=== PATIENT | female | born 2000 | race Caucasian/White ===

== ENCOUNTER → 2022-02-26 | Outpatient (CLI) | payer OTHER, SELFPAY ==
[2022-02-28 21:07] LABS: Chlamydia By Nucleic Acid AMP Negative (Negative)
[2022-03-01 15:10] LABS: Gonococcus By Nucleic Acid AMP Negative (Negative)
[2022-03-05 15:08] LABS: HPV Reflexed? NOT INDICATED
== END | disposition home or self-care (01) ==
PROVIDERS: Visit Provider Student in an Organized Health Care Education/Training Program
DX: Z12.4 Encounter for screening for malignant neoplasm of cervix (principal); Z11.3 Encounter for screening for infections with a predominantly sexual mode of transmission
CPT/HCPCS: 87491; 87591; 88175; G0145

== ENCOUNTER → 2022-05-03 | Outpatient (CLI) | payer OTHER, SELFPAY ==
[2022-05-03 16:04] LABS: Absolute Lymphocyte Count 2.21 X10^3/uL (0.83-4.51); Absolute Neutrophil Count 7.6 X10^3/uL (2.0-7.7); Basophil# 0.04 X10^3/uL; Basophil% 0.4 % (0-1); Eosinophil# 0.15 X10^3/uL; Eosinophils% 1.4 % (0-5); Hematocrit 36.7 % (37-47); Lymphocyte # 2.21 X10^3/ul (0.83-4.51); Lymphocyte % 20.9 % (19-41); Mean Corp Hgb Conc 32.7 g/dL (32-36); Mean Corpuscular Volume 82.7 fL (81-99); Monocyte# 0.47 X10^3/uL; Monocyte% 4.5 % (0-10); NRBC Flagged by Analyzer 0 % (0-5); Neutrophil # 7.64 X10^3/uL (2.7-7.7); Neutrophil % 72.4 % (47-70); Platelet Count 314 K/mm3 (150-450); RBC Distribution Width CV 14.3 % (11.6-14.6); RBC Distribution Width SD 42.8 fl (35.1-43.9); Red Blood Count 4.44 M/mm3 (4.2-5.4); White Blood Count 10.6 K/mm3 (4.4-11.0)
[2022-05-03 17:15] LABS: HIV - WCH Non-Reactive (Nonreactive); Hepatitis B Surface Antigen Non-Reactive (Nonreactive); Hepatitis C Antibody Non-Reactive (Nonreactive); Rubella IgG Reactive (Nonreactive); Syphilis Antibodies Non-reactive
[2022-05-05 14:54] LABS: V-Zoster IgG (Immunity) 948 index (Immune >165)
== END | disposition home or self-care (01) ==
LOC: WOBLAB 15:19
PROVIDERS: Visit Provider Obstetrics & Gynecology
DX: N91.2 Amenorrhea, unspecified (principal)
CPT/HCPCS: 36415; 85025; 86703; 86762; 86780; 86787; 86803; 87086; 87088; 87340

== ENCOUNTER → 2022-08-13 | Outpatient (CLI) | payer MEDICAID, SELFPAY ==
[2022-08-13 15:39] LABS: Absolute Lymphocyte Count 1.84 X10^3/uL (0.83-4.51); Absolute Neutrophil Count 8.3 X10^3/uL (2.0-7.7); Basophil# 0.02 X10^3/uL; Basophil% 0.2 % (0-1); Eosinophil# 0.07 X10^3/uL; Eosinophils% 0.7 % (0-5); Hematocrit 35.4 % (37-47); Hemoglobin 11.4 g/dL (12.0-15.0); Lymphocyte # 1.84 X10^3/ul (0.83-4.51); Lymphocyte % 17.1 % (19-41); Mean Corp Hgb Conc 32.2 g/dL (32-36); Mean Corpuscular Hgb 27.6 pg (27.0-32.0); Mean Corpuscular Volume 85.7 fL (81-99); Mean Platelet Vol. 9.5 fl (6.2-12.0); Monocyte# 0.48 X10^3/uL; Monocyte% 4.5 % (0-10); NRBC Flagged by Analyzer 0 % (0-5); Neutrophil # 8.31 X10^3/uL (2.7-7.7); Neutrophil % 77.2 % (47-70); Platelet Count 282 K/mm3 (150-450); RBC Distribution Width CV 13.5 % (11.6-14.6); RBC Distribution Width SD 42.5 fl (35.1-43.9); Red Blood Count 4.13 M/mm3 (4.2-5.4); White Blood Count 10.8 K/mm3 (4.4-11.0)
[2022-08-13 16:20] LABS: Glucose Challenge Gest 1H 50g 105 mg/dL (70-140)
[2022-08-13 16:49] LABS: Syphilis Antibodies Non-reactive
== END | disposition home or self-care (01) ==
LOC: WOBLAB 15:21
PROVIDERS: PCP Pediatrics; Visit Provider Obstetrics & Gynecology
DX: Z34.82 Encounter for supervision of other normal pregnancy, second trimester (principal); Z11.3 Encounter for screening for infections with a predominantly sexual mode of transmission
CPT/HCPCS: 36415; 82950; 85025; 86780

== ENCOUNTER 2023-07-12 13:45 | Emergency (ER) | payer MEDICAID, SELFPAY ==
[2023-07-12 13:45] VITALS: BP 124/50; PULSE 82; RESP 16; TEMP 35.7; O2SAT 95; BMI 41.6
--- NOTE | 2023-07-12 14:19 | RAD_ITS ---
INDICATION: FALL EXAMINATION/TECHNIQUE: X-RAY - RIGHT XR Wrist Min 3 Views 3 VIEWS COMPARISON: No relevant prior comparison study available FINDINGS: SOFT TISSUES: No soft tissue swelling or gas. No radiopaque foreign body. BONES/JOINTS: No acute fracture or subluxation.. Normal alignment. Preservation of the joint space.. No sclerotic or destructive changes observed. RAD/Wrist min 3 Views IMPRESSION: No evidence of acute fracture or dislocation. Electronically Signed: Scott Abrams MD at 14:51 EDT ,
--- NOTE | 2023-07-12 14:32 | RAD_ITS ---
INDICATION: FALL EXAMINATION/TECHNIQUE: X-RAY - RIGHT XR Hand Min 3 Views 3 VIEWS COMPARISON: No relevant prior comparison study available FINDINGS: SOFT TISSUES: No soft tissue swelling or gas. No radiopaque foreign body. BONES/JOINTS: No acute fracture or subluxation.. Normal alignment. Preservation of the joint space.. No sclerotic or destructive changes observed. RAD/Hand Min 3 Views IMPRESSION: No evidence of acute fracture or dislocation. Electronically Signed: Scott Abrams MD at 14:49 EDT ,
[2023-07-12 17:45] VITALS: PULSE 84; RESP 14; O2SAT 100
--- NOTE | 2023-07-12 18:31 | ED.RN ---
Patient LWBS at 1831.
== END 2023-07-12 18:31 | disposition left against medical advice (07) ==
LOC: ED 18:44
PROVIDERS: PCP Pediatrics
DX: Z04.3 Encounter for examination and observation following other accident (principal); Z53.21 Procedure and treatment not carried out due to patient leaving prior to being seen by health care provider
CPT/HCPCS: 73110; 73130

== ENCOUNTER 2024-06-13 18:45 | Emergency (ER) | payer MEDICAID, SELFPAY ==
[2024-06-13 18:46] VITALS: BP 116/61; PULSE 71; RESP 18; TEMP 36.1; O2SAT 100; BMI 41.8
--- NOTE | 2024-06-13 19:08 | EX.ED.UPPERE ---
HPI <BRAULIO [place] - Last Filed: 06/13/24 19:48> History of Present Illness Chief Complaint: Upper Extremity Injury Narrative Narrative: 23-year-old female injured her right shoulder last night. She was lifting the car seat with her [id number] infant when she felt a sudden pain in the right shoulder. There was no direct trauma. She was seen at a [facility] orthopedic urgent care and had negative shoulder x-rays. She was given an IM Toradol shot, prescribed ibuprofen, and given a sling. She states ibuprofen did not help the pain. She took a Valium she had on hand to be able to get some sleep. She states the pain is now shooting to her right elbow. She has no weakness or numbness or tingling. [facility] <BRAULIO [place] - Last Filed: 06/13/24 19:48> [facility] Medical History (Updated 06/13/24 @ 19:34 by BRAULIO [place]) Acute otitis media, right Medical History no medical history Home Medications ?Medication ?Instructions ?Recorded ?Last Taken ?Type NK 05/28/22 Unknown History Allergy/AdvReac Type Severity Reaction Status Date / Time No Known Allergies Allergy Verified 06/13/24 18:46 Social History (System 08/21/22 @ 09:44 by Anabel Perera) Smoking Status: Never smoker ROS <BRAULIO [place] - Last Filed: 06/13/24 19:48> ROS ED ROS Narrative Neuro: Negative for motor/sensory dysfunction. Musc: Positive for right shoulder pain. No swelling. EXAM <BRAULIO [place] - Last Filed: 06/13/24 19:48> Physical Exam Narrative Exam Narrative: CONST: Patient sitting in no acute distress. EYES: Normal inspection. NECK: Normal inspection. No midline tenderness or step-offs. RESP: No respiratory distress, CTAB. CVS: Regular rate and rhythm, no murmur, no gallop. SKIN: Color normal, no rash, warm, dry, intact. EXTREMITIES: Right upper extremity: Normal appearance. Tender over right trapezius and right subclavicular area. There is no bony tenderness of the clavicle, shoulder humerus elbow forearm wrist or hand. Shoulder range of motion is limited due to pain but she has full passive range of motion. 5/5 strength, normal sensation, normal function in median radial and ulnar distributions. 2+ radial pulse. Soft compartments. NEURO: Alert and answering questions appropriately. PSYCH: Normal affect. Const Vital Signs: 06/13/24 18:46 Temperature 97 F L Temperature Source Temporal Pulse Rate 71 Respiratory Rate 18 Blood Pressure 116/61 Blood Pressure Mean 79 Pulse Ox 100 Oxygen Delivery Method Room Air [facility] <BRAULIO [place] - Last Filed: 06/13/24 19:48> [facility] Narrative Medical decision making narrative: 23-year-old female developed right shoulder pain with lifting a car seat with her infant. There was no direct trauma. She was seen at another orthopedic emergency room and had negative shoulder x-rays. She is taking ibuprofen without pain relief. She also tried a Valium she had on hand. She has no external signs of trauma. She is tender over the anterior and posterior shoulder muscles but really does not have any bony tenderness of the chest back or right upper extremity. She is neurovascularly intact. Her history and exam are consistent with a muscle strain. She states Toradol at the previous facility last night did not help so she does not want it again. I ordered Tylenol, Lidoderm patch, and Norflex and recommended she alternate Tylenol and ibuprofen every 3 hours and use [id number] lidocaine patches. This will take time to improve. She was discharged in stable condition. <Dr. Vinnie Hong DO - Last Filed: 06/13/24 23:17> [facility] Narrative Medical decision making narrative: 23-year-old female developed right shoulder pain with lifting a car seat with her . There was no direct trauma. She was seen at another orthopedic emergency room and had negative shoulder x-rays. She is taking ibuprofen without pain relief. She also tried a Valium she had on hand. She has no external signs of trauma. She is tender over the anterior and posterior shoulder muscles but really does not have any bony tenderness of the chest back or right upper extremity. She is neurovascularly intact. Her history and exam are consistent with a muscle strain. She states Toradol at the previous facility last night did not help so she does not want it again. I ordered Tylenol, Lidoderm patch, and Norflex and recommended she alternate Tylenol and ibuprofen every 3 hours and use [id number] lidocaine patches. This will take time to improve. She was discharged in stable condition. ED attending note: I evaluated the patient in conjunction with the [facility]. I agree with his/her statements and above findings. I have personally performed a face to face assessment of the patient and have reviewed the [facility] Note. I performed a substantive portion of the visit including all aspects of the following. I personally saw the patient performed chart review, physical exam, reviewed labs, imaging (if obtained), and formulated a treatment and management plan. History as above. Exam: No step-offs deformities noted to right shoulder. No clavicular tenderness. Compartments are soft. Right upper extremity neurovascular intact. Intact 5/5 strength with ok sign (median), intact finger abduction (ulnar) intact wrist extension (radial n). Intact sensation in the radial, ulnar, and median nerve distributions. MDM/plan: Likely rotator cuff injury. Patient self-reported negative x-ray. Medication for additional images. Patient's point for discharge home with a sling and symptomatic therapy. This note was generated with [employer] dictation software. It may contain incorrect words, spelling, and punctuation that were not noted in review of the chart prior to signing. Discharge Plan Triage Chief Complaint: Upper Extremity Injury ED Midlevel Provider: Sammie Galeano ED Provider: Vinnie Hong Dx/Rx/DC Orders Clinical Impression: Right shoulder strain Instructions: ED Muscle Strain, Extremity Prescriptions: No Action NK Primary Care Provider: Care Physician,No Primary Referrals: Kevin Coleman MD [Non-Staff] - Activity Restrictions/Additional Instructions: You can take ibuprofen 600 mg and Tylenol 1000 mg every 6 hours together. Use ice. You can use [id number] Salonpas (these are lidocaine patches). This is a muscle strain and will take time to improve. Print Language: Filipino Disposition Disposition: Home, Self Care Discharge Date/Time: 06/13/24 20:08
[2024-06-13] MEDS: Orphenadrine 100 MG Tablet PO (19:17)
[2024-06-13] MEDS: Lidocaine 5% Patch 1 PATCH TOPICAL (19:17)
[2024-06-13] MEDS: Acetaminophen 500 MG Tablet 1000 MG PO (19:17)
[2024-06-13 20:07] VITALS: BP 124/62; PULSE 77; RESP 18; TEMP 36.9; O2SAT 100
== END 2024-06-13 20:08 | disposition home or self-care (01) ==
PROVIDERS: Emergency Provider Emergency Medicine; Visit Provider Emergency Medicine
DX: S46.911A Strain of unspecified muscle, fascia and tendon at shoulder and upper arm level, right arm, initial encounter (principal); X50.0XXA Overexertion from strenuous movement or load, initial encounter
CPT/HCPCS: 99283

== ENCOUNTER 2024-09-08 23:42 | Emergency (ER) | payer MEDICAID, SELFPAY ==
[2024-09-08 23:43] VITALS: BP 128/65; PULSE 89; RESP 18; TEMP 36.2; O2SAT 98; BMI 42.0
--- NOTE | 2024-09-08 23:51 | EDS_ITS ---
HPI HPI - Female History of Present Illness Chief Complaint: Female C/O Pain Pain: Positive for Pelvic Pain Onset: Today Context: Sudden Onset Timing: Intermittent Quality: Positive for Sharp and Stabbing Location: RLQ (Right inguinal area) Worsened by: - (Nothing) Relieved by: - (Nothing) Bleeding Issue: Positive for Vaginal bleeding and Passing clots Onset: Weeks (3) Timing: Continuous Associated Symptoms Associated Symptoms: Negative for Dysuria or Frequency Narrative Narrative: Patient presents with right inguinal pain that began today. Patient states it began rather suddenly. Patient states it has been intermittent. Patient describes it as sharp and stabbing. Patient states nothing makes it better nothing makes it worse. Patient denies any fevers or chills. Patient denies any radiation of her pain. Patient admits to some nausea but denies any vomiting. Patient does admit to some persistent vaginal bleeding over the past 3 weeks. Patient also admits to some blood in her stools that has been intermittent. [facility] Medical History (Updated 09/09/24 @ 02:[address] Ivan Bright DO) Depression Anxiety Vaginal delivery Acute otitis media, right Home Medications ?Medication ?Instructions ?Recorded ?Last Taken ?Type citalopram 10 mg tablet 10 mg PO DAILY 09/08/24 Unkn own History hydroxyzine HCl 10 mg tablet 10 mg PO TID PRN PRN anxi ety 09/08/24 Unknown History sulfamethoxazole 800 1 tab PO BID #6 TABLETS 08/20 06/15 Unknown Rx mg-trimethoprim 160 mg tablet tramadol 50 mg tablet 50 mg PO Q6H PRN PRN Pain 3 days 09/09/24 Unknown Rx #12 tabs Allergy/AdvReac Type Severity Reaction Status Date / Time shrimp Allergy Mild Rash Verified 09/08/24 23:43 Surgical History no surgical history no surgical history Social History Smoking Status: Never smoker ROS ROS ED Constitutional Constitutional ED: Denies chills or fever(s) Eyes Eyes: Reports blurry vision; Denies change in vision ENT ENT ED: Denies rhinorrhea or sore throat Cardiovascular Cardiovascular: Denies chest pain or palpitations Respiratory/Chest Respiratory/Chest: Denies cough or dyspnea Gastrointestinal Gastrointestinal: Reports abdominal pain and nausea; Denies vomiting Genitourinary Genitourinary ED: Denies dysuria or urinary frequency Musculoskeletal Musculoskeletal: Denies back pain or neck pain Integumentary Denies abscess or rash Neurologic Neurologic: Reports headache(s); Denies weakness Allergic/Immunologic Allergic/Immunologic ED: Denies mouth swelling or urticaria EXAM Physical Exam Const Vital Signs: 09/08/24 23:43 09/09/24 01:42 Temperature 97.2 F L Temperature Source Temporal Pulse Rate 89 69 Respiratory Rate 18 15 Blood Pressure 128/65 H 129/89 H Blood Pressure Mean 86 102 Pulse Ox 98 98 Oxygen Delivery Method Room Air Room Air Positive well nourished and well developed Constitutional Narrative: BMI is 42.1 General Appearance ED: well developed and NAD HEENT Reports moist mucous membranes Neck supple and no JVD Resp normal respiratory effort and clear to auscultation bilaterally Cardio regular rate and regular rhythm GI soft to palpation and non-distended Palpation: tender RLQ (And right inguinal area); Negative for guarding Extremity normal to inspection and full ROM General Extremety ED: Negative for edema or tenderness General Extremity: Negative for edema Neuro oriented x3, CN's II-XII intact bilaterally and no sensory deficits noted Sensorium / Orientation: alert Motor Exam: strength 5/5 throughout Psych mental status grossly normal MDM MDM MDM Narrative Medical decision making narrative: Differential diagnosis includes ovarian cyst, ectopic , urinary tract infection, hemorrhagic cystitis, lower gastrointestinal bleeding, hemorrhoid, pancreatitis, and colitis. CBC will be obtained to assess for leukocytosis and anemia. Comprehensive metabolic profile will be obtained to assess for hepatic function, renal function, and electrolyte abnormality. Lipase will be obtained to assess for pancreatitis. Serum hCG will be obtained to assess for . Urinalysis will be obtained to assess for urinary tract infection and hematuria. Stool for occult blood will be obtained to assess for lower gastrointestinal bleeding. History & Record Review Additional record(s) reviewed:: Prior outpatient record and Prior labs Lab Data Attestation: I reviewed the patient's lab results. Lab results narrative: CBC was reviewed and was within normal limits. Comprehensive metabolic profile was reviewed and was within normal limits. Lipase was reviewed and was normal. Serum hCG was reviewed and was negative. Urinalysis was reviewed. Leukocyte Estrace was 100. There are 50-100 white blood cells. There is 3+ bacteria. There are 10-25 epithelial cells. Occult blood was 250. There are greater than 100 red blood cells noted. Stool was positive for occult blood. Labs: Laboratory Results - last 24 hr 09/08/24 09/08/24 00:18 23:57 WBC 10.2 RBC 4.72 Hgb 12.7 Hct 39.0 MCV 82.6 MCH 26.9 L MCHC 32.6 RDW Std Deviation 40.8 RDW Coeff of Queta 13.4 Plt Count 307 MPV 10.0 Immature Gran % (Auto) 0.300 Neut % (Auto) 52.3 Lymph % (Auto) 36.1 [place] % (Auto) 5.6 Eos % (Auto) 4.9 Baso % (Auto) 0.8 Absolute Neuts (auto) 5.3 Absolute Lymphs (auto) 3.67 Nucleated RBC % 0 Sodium 143 Potassium 3.6 Chloride 108 Carbon Dioxide 22.1 Anion Gap 13 BUN 14 Creatinine 0.79 Estim Creat Clear Calc 129.25 Est GFR (MDRD) Non-Af 106 BUN/Creatinine Ratio 17.3 Glucose 94 Calcium 8.9 Total Bilirubin < 0.15 AST 22 ALT 12 Alkaline Phosphatase 109 H Total Protein 7.1 Albumin 4.1 Globulin 3.0 Albumin/Globulin Ratio 1.4 Lipase 29 Serum , Qual NEGATIVE Urine Color Red Urine Clarity Cloudy Urine pH 6.0 Ur Specific [place] 1.020 Urine Protein 100 H Urine Glucose (UA) Normal Urine Ketones Negative Urine Occult Blood 250 H Urine Nitrite Negative Urine Bilirubin Negative Urine Urobilinogen 1 H Ur Leukocyte Esterase 100 H Urine RBC > 100 SEEN Urine WBC 50-100 SEEN Ur Squamous Epith Cells 10-25 SEEN Urine Bacteria 3+ Urine Mucus 2+ Radiography Diagnostic Testing: Clinical Impression(s) from Imaging Studies Abdomen/Pelvis CT 09/09/24 01:00 IMPRESSION: No evidence of acute intra-abdominal process as above. Suggestion of hepatic steatosis. Reading Location: [facility] CT scan of the abdomen and pelvis was obtained. There is no acute intra- abdominal process noted. There is no bowel obstruction or perforation. There is no free air or free fluid. This was interpreted by the radiologist and was also independently reviewed by myself. Treatment and Re-Evaluation Narrative: Patient was given IV fluids and Zofran. Patient was advised of her findings. Urine culture was ordered. Patient was given a dose of Bactrim here. Patient is given a prescription for Bactrim. Patient was instructed to follow-up with her primary care physician in 3 to 5 days for reevaluation. Patient was given a prescription for tramadol to take as needed for pain. Patient was instructed to return if worse in any way. Patient understood and was agreeable with the plan. All questions were answered. Discharge Plan Triage Chief Complaint: Female C/O ED Provider: Ivan Bright Dx/Rx/DC Orders Clinical Impression: Pelvic pain, Urinary tract infection Instructions: ED Abdominal Pain Unkn Cause Fem, ED Cystitis Female Adult Prescriptions: New sulfamethoxazole-trimethoprim 800-160 mg tablet 1 tab PO BID Qty: 6 0RF tramadol 50 mg tablet 50 mg PO Q6H PRN PRN (Reason: Pain) 3 Days Qty: 12 0RF No Action citalopram 10 mg tablet 10 mg PO DAILY hydroxyzine HCl 10 mg tablet 10 mg PO TID PRN PRN (Reason: anxiety) Primary Care Provider: Care Physician,No Primary Referrals: Sina Harrison MD [Med Staff - Active Staff] - 3-5 Days Care Physician,No Primary [Primary Care Provider] - Print Language: Telugu Disposition Disposition: Home, Self Care
[2024-09-09 00:20] LABS: Absolute Lymphocyte Count 3.67 X10^3/uL (0.83-4.51); Absolute Neutrophil Count 5.3 X10^3/uL (2.0-7.7); Basophil# 0.08 X10^3/uL; Basophil% 0.8 % (0-1); Eosinophils% 4.9 % (0-5); Hemoglobin 12.7 g/dL (12.0-15.0); Lymphocyte # 3.67 X10^3/ul (0.83-4.51); Lymphocyte % 36.1 % (19-41); Mean Corp Hgb Conc 32.6 g/dL (32-36); Mean Corpuscular Hgb 26.9 pg (27.0-32.0); Mean Corpuscular Volume 82.6 fL (81-99); Monocyte# 0.57 X10^3/uL; Monocyte% 5.6 % (0-10); NRBC Flagged by Analyzer 0 % (0-5); Neutrophil # 5.31 X10^3/uL (2.7-7.7); Neutrophil % 52.3 % (47-70); Platelet Count 307 K/mm3 (150-450); RBC Distribution Width CV 13.4 % (11.6-14.6); RBC Distribution Width SD 40.8 fl (35.1-43.9); Red Blood Count 4.72 M/mm3 (4.2-5.4); White Blood Count 10.2 K/mm3 (4.4-11.0)
[2024-09-09] MEDS: 0.9% Normal Saline (1000mL) 1,000 ML 1000 ML IV (00:30)
[2024-09-09] MEDS: Ondansetron 4 MG/2 ML Vial IV (00:30)
[2024-09-09 00:31] LABS: Internal QC Validated? YES +Cl - CLEAR BKGD; Pregnancy, Serum, hCG Quali. NEGATIVE Negative
[2024-09-09 00:32] LABS: Lipase 29 U/L (13-75)
[2024-09-09 00:39] LABS: ALB/GLOB Ratio 1.4 RATIO (0.9-2.4); AST(SGOT) 22 U/L (<=31); Alanine Aminotransfer ALT/SGPT 12 U/L (<=34); Albumin, Serum 4.1 g/dL (3.5-5.0); Alkaline Phosphatase 109 U/L (35-104); Anion Gap 13 (5-15); BUN 14 mg/dL (4-19); BUN/Creat Ratio 17.3 RATIO (10-20); Calcium,Total 8.9 mg/dL (7.6-11.0); Carbon Dioxide 22.1 mmol/L (21.0-32.0); Chloride 108 mmol/L (98-108); Creatinine, Serum 0.79 mg/dL (0.70-1.20); EST Glomerular Filtration Rate 106 (>60); Estimated Creatinine Clearance 129.25 ml/min (50-250); Glucose 94 mg/dL (70-99); Potassium 3.6 mmol/L (3.3-5.1); Protein, Total 7.1 g/dL (5.9-8.4); Sodium Level 143 mmol/L (133-145); Total Bilirubin < 0.15 mg/dL (0.00-1.30)
[2024-09-09 00:41] LABS: Color, Urine Red (Yellow); Glucose, Dipstick Normal (Normal); Ketone-Dipstick Negative (Negative); Leukocyte Esterase-Dipstick 100 /ul (Negative); Nitrite-Dipstick Negative (Negative); Occult Blood-Urine 250 /ul (Negative); Protein-Dipstick 100 mg/dl (Negative); Urine Bilirubin Dipstick Negative (Negative); Urine Clarity Cloudy (Clear); Urine Urobilinogen 1 mg/dl (Normal)
--- NOTE | 2024-09-09 01:00 | CT_ITS ---
PROCEDURE: ABDOMEN/PELVIS W IV CONT ONLY 09/09/2024 REASON FOR EXAM: ABDOMINAL PAIN TECHNIQUE: Abdomen and pelvis CT with intravenous contrast. Coronal and Sagittal reconstruction series were provided. PATIENT PREPARATION: Per protocol ORAL CONTRAST TYPE: None. CONTRAST: 92 cc Isovue 370 IV One or more dose reduction techniques were used (e.g., Automated exposure control, adjustment of the mA and/or kV according to patient size, use of iterative reconstruction technique. RADIATION DOSE SUMMARY: CTDlvol: 26.60 mGy DLP: 1373.73 mGycm COMPARISON: None available FINDINGS: The lung bases are clear. Appearance of hepatic steatosis. The gallbladder, adrenal glands, kidneys, pancreas and spleen appear within limits. Abdominal aorta appears within limits without aneurysm. No adenopathy identified. No bowel dilation or free air. Normal caliber appendix without secondary signs. The ovaries, uterus and bladder appear within limits. No appreciable abnormality identified at the vagina or rectum as visualized. No free fluid. Visualized osseous structures appear within limits. CT/Abdomen/Pelvis W IV Cont ONLY IMPRESSION: No evidence of acute intra-abdominal process as above. Suggestion of hepatic steatosis. Reading Location: [id number]
[2024-09-09 01:03] LABS: Bacteria 3+ /hpf (None Seen); Mucous, Urine 2+ /hpf (<or=2+); Red Blood Cells-Urine > 100 SEEN /hpf (0-5); Squamous Epithelial Cells - UA 10-25 SEEN /hpf (5-10); White Blood Cells 50-100 SEEN /hpf (0-5)
[2024-09-09 01:42] VITALS: BP 129/89; PULSE 69; RESP 15; O2SAT 98
[2024-09-09 02:17] VITALS: BP 129/89; PULSE 69; RESP 15; TEMP 36.6; O2SAT 98
[2024-09-09] MEDS: Smz/Tmp Ds Tablet 1 TABLET PO (02:23)
== END 2024-09-09 02:24 | disposition home or self-care (01) ==
PROVIDERS: Emergency Provider Emergency Medicine; Visit Provider Emergency Medicine
DX: R10.2 Pelvic and perineal pain (principal); N39.0 Urinary tract infection, site not specified
CPT/HCPCS: 74177; 80053; 81001; 82274; 83690; 84703; 85025; 96361; 96374; 99283; Q9967; A4216; J2405